=== PATIENT | female | born 1990 | race Caucasian/White ===

== ENCOUNTER 2020-12-18 15:01 | Emergency (ER) | payer OTHER ==
[~2020-12-18] VITALS: Ht 160 cm; Wt 90.7 kg
[2020-12-18 15:02] VITALS: BP 105/66
--- NOTE | 2020-12-18 15:30 | NUR ---
30 YO F C/O LEFT-SIDED FACIAL PAIN X 1 WEEK, WORSENING TODAY. 7/10, SHARP PAIN RADIATING TO LEFT EYE, LEFT EAR AND LEFT SIDE OF HEAD. ALSO COMPLAINS OF NAUSEA AND DIZZINESS TODAY. DENIES TRAUMA OR INJURY TO AREA. DENIES N/V, BOV, LOC. PT STATES HAVING SIMILAR EPISODE 4 YEARS AGO, DIAGNOSED WITH SINUS INFECTION. TOOK TYLENOL AND ALEVE WITH NO RELIEF AND IBUPROFEN AN HOUR AGO WHICH CAUSED DIZZINESS. PMH: NONE ALLERGIES: FRUITS AND VEGETABLES
[2020-12-18] MEDS ORDERED: fentaNYL citrate 0.05 MG/ML VIAL NS ONE (15:45)
[2020-12-18] MEDS ORDERED: KETOROLAC 30 MG/ML VIAL IM ONE (15:45)
--- NOTE | 2020-12-18 16:45 | NUR ---
PATIENT STATES THAT PAIN HAS MILDLY IMPROVED, BUT STILL PRESENT, CURRENTLY 04/25.
[2020-12-18] MEDS ORDERED: diazePAM 5 MG TAB PO ONE (17:10)
[2020-12-18] MEDS ORDERED: DIAZ5TAB6 PO (19:04)
[2020-12-18] MEDS ORDERED: NAPR-54 PO (19:04)
[2020-12-18 19:17] VITALS: BP 105/66
--- NOTE | 2020-12-18 19:18 | NUR ---
Patient discharged with v/s stable. Written and verbal after care instructions given and explained. Patient alert, oriented and verbalized understanding of instructions. Ambulatory with steady gait. All questions addressed prior to discharge. ID band removed. Patient advised to follow up with PMD. Rx of DIAZEPAM, NAPROXEN given. Patient educated on indication of medication including possible reaction and side effects. Opportunity to ask questions provided and answered.
== END 2020-12-18 19:17 | disposition home or self-care (01) ==
LOC: MED 15:01
DX: M54.81 Occipital neuralgia (principal); Z91.018 Allergy to other foods
CPT/HCPCS: 70450; 81025; 96372; 99284; J1885; J3010